=== PATIENT | female | born 1965 | race Caucasian/White ===

== ENCOUNTER 2017-04-20 17:08 | Emergency (ER) | payer MEDICARE ==
[~2017-04-20] VITALS: Ht 167.6 cm; Wt 74.4 kg
[2017-04-20] MEDS ORDERED: NEXIUM40 M1 PO (18:02)
[2017-04-20] MEDS ORDERED: PERCOCET1 TA2 PO (18:03)
[2017-04-20] MEDS ORDERED: ADDERALL30 MG PO (18:05)
[2017-04-20] MEDS ORDERED: VALIUM5 MG PO (18:05)
[2017-04-20] MEDS ORDERED: SURFAK240 MG/CAP PO (18:07)
[2017-04-20] MEDS ORDERED: PERCOCET 5/325M1 TAB PO (19:11)
[2017-04-20 19:30] VITALS: BP 122/80
== END 2017-04-20 20:35 | disposition home or self-care (01) ==
LOC: ED 17:08
DX: S50.02XA Contusion of left elbow, initial encounter (principal); S20.212A Contusion of left front wall of thorax, initial encounter; S40.022A Contusion of left upper arm, initial encounter; S22.32XA Fracture of one rib, left side, initial encounter for closed fracture; W17.89XA Other fall from one level to another, initial encounter; Y92.007 Garden or yard of unspecified non-institutional (private) residence as the place of occurrence of the external cause